=== PATIENT | male | born 1945 | race Caucasian/White ===

== ENCOUNTER → 2018-06-11 | Outpatient (CLI) | payer OTHER | LOC: FIMAGING 13:06 | PROVIDERS: ATTEND Internal Medicine | DX: J34.89 Other specified disorders of nose and nasal sinuses (principal); M50.321 Other cervical disc degeneration at C4-C5 level ==

== ENCOUNTER 2018-07-14 17:45 | Emergency (ER) | payer OTHER ==
--- NOTE | 2018-07-14 19:24 | EDPHY ---
H & P Stated Complaint: Dental/sinus inf, ABX x4mos, intermittent vertigo Time Seen by Provider: 07/14/18 19:05 HPI/ROS: CHIEF COMPLAINT: Sinus infection HISTORY OF PRESENT ILLNESS: The patient is a healthy 72-year-old man who comes to the emergency department his and daughter. They are concerned for persistent sinus infection that seems to be worsening. In March he developed a periapical abscess in his right upper molar. It was extracted. Prior to the extraction he had amoxicillin. After the extraction he was given Augmentin. He developed right sinus pressure however as well as discharge. No fevers. He finished a course of Augmentin but his symptoms persisted so his primary sent him to a urine nose and throat doctor. The ear nose and throat doctor placed him on a 40 day course of doxycycline. He has 4 days left but his symptoms have persisted. He also has having some mild intermittent dizziness with certain head movements. It resolves spontaneously and is very brief. His daughter is also concerned because he has had a low-grade fever of 99-100 at home. She is a nurse and is concerned about sepsis. They presented to an urgent care this afternoon who sent him here. No focal weakness or deficits. Severity: Moderate Modifying factors: None REVIEW OF SYSTEMS: Constitutional: denies: chills, fever, recent illness, recent injury EENTM: See HPI Respiratory: denies: cough, shortness of breath Cardiac: denies: chest pain, irregular heart rate, lightheadedness, palpitations Gastrointestinal/Abdominal: denies: abdominal pain, diarrhea, nausea, vomiting, blood streaked stools Genitourinary: denies: dysuria, frequency, hematuria, pain Musculoskeletal: denies: joint pain, muscle pain Skin: denies: lesions, rash, jaundice, bruising Neurological: denies: headache, numbness, paresthesia, tingling, dizziness, weakness Hematologic/Lymphatic: denies: blood clots, easy bleeding, easy bruising Immunologic/allergic: denies: HIV/AIDS, transplant 10 systems reviewed and negative except as noted EXAM: GENERAL: Well-appearing, well-nourished and in no acute distress. HEAD: Atraumatic, normocephalic. EYES: Pupils equal round and reactive to light, extraocular movements intact, sclera anicteric, conjunctiva are normal. ENT: Effusion right tympanic membrane, maxillary sinus tenderness on the right , oropharynx clear without exudates. Moist mucous membranes. NECK: Normal range of motion, supple without lymphadenopathy or JVD. LUNGS: Breath sounds clear to auscultation bilaterally and equal. No wheezes rales or rhonchi. HEART: Regular rate and rhythm without murmurs, rubs or gallops. ABDOMEN: Soft, nontender, normoactive bowel sounds. No guarding, no rebound. No masses appreciated. BACK: No CVA tenderness, no spinal tenderness, step-offs or deformities EXTREMITIES: Normal range of motion, no pitting or edema. No clubbing or cyanosis. NEUROLOGICAL: Cranial nerves II through XII grossly intact. Normal speech, normal gait. 5/5 strength, normal movement in all extremities, normal sensation , normal reflexes PSYCH: Normal mood, normal affect. SKIN: Warm, dry, normal turgor, no visible rashes or lesions. Source: Patient Exam Limitations: No limitations - Personal History Current Tetanus/Diphtheria Vaccine: Yes - Medical/Surgical History Hx Asthma: No Hx Chronic Respiratory Disease: No Hx Diabetes: No Hx Cardiac Disease: No Hx Renal Disease: No Hx Cirrhosis: No Hx Alcoholism: No Hx HIV/AIDS: No Hx Splenectomy or Spleen Trauma: No Other PMH: ORAL SURGERY, HTN, REFLUX - Family History Significant Family History: No pertinent family hx - Social History Smoking Status: Never smoked Alcohol Use: Sober Drug Use: None Constitutional: Initial Vital Signs Temperature (C) 37.3 C 07/14/18 18:01 Heart Rate 84 07/14/18 18:01 Respiratory Rate 16 07/14/18 18:01 Blood Pressure 163/100 H 07/14/18 18:01 O2 Sat (%) 97 07/14/18 18:01 O2 Delivery Mode Room Air Allergies/Adverse Reactions: No Known Allergies Allergy (Verified 07/14/18 18:01) Home Medications: Medication Instructions Recorded Albuterol 5 mg/ml INH [Proventil] 2 puffs IH Q4-6PRN #1 btl 05/24/13 Atenolol 05/24/13 Azithromycin 250 mg PO DAILY #1 packet 05/24/13 Benzonatate [Tessalon Pearles] 200 mg PO BID #14 cap 05/24/13 Flomax 0.4 MG (RX) 05/24/13 Nexium 05/24/13 Norvasc 05/24/13 levOFLOXACIN [levAQUIN] 750 mg PO DAILY #10 tab 07/14/18 predniSONE 40 mg PO DAILY #10 tablet 07/14/18 Medical Decision Making - Diagnostics Imaging: Discussed imaging studies w/ banquet server on call Radiologist ED Course/Re-evaluation: 8:00 p.m. discussed the case with Tato who is on-call for Dr. Membreno. He will call back pain 8:25 p.m. discussed the case with Tato who spoke with Dr. Mejia. He is recommending Levaquin and prednisone 40 mg and follow-up in their office tomorrow. Family is happy with this plan. Patient declines IV antibiotics here in the department. Differential Diagnosis: Partial list of the Differential diagnosis considered include but were not limited to; chronic sinusitis, acute sinusitis, abscess and although unlikely based on the history and physical exam, I also considered thrombosis, dissection , meningitis, sepsis. - Data Points Laboratory Results: Laboratory Results 07/14/18 19:35 07/14/18 19:35 Medications Given: Discontinued Medications Levofloxacin (Levaquin) 750 mg PO EDNOW ONE PRN Reason: Protocol Stop: 07/14/18 20:32 Last Admin: 07/14/18 20:40 Dose: 750 mg Prednisone (Prednisone) 40 mg PO EDNOW ONE Stop: 07/14/18 20:33 Last Admin: 07/14/18 20:40 Dose: 40 mg Departure - Departure Disposition: Home, Routine, Self-Care Clinical Impression: Chronic sinusitis Qualifiers: Sinusitis location: unspecified location Qualified Code(s): J32.9 - Chronic sinusitis, unspecified Condition: Fair Instructions: Sinusitis (ED) Referrals: Blade Yen MD [Primary Care Provider] - As per Instructions Prescriptions: levOFLOXACIN [levAQUIN] 750 mg PO DAILY #10 tab predniSONE 40 mg PO DAILY #10 tablet
[2018-07-14 19:55] LABS: PLATELET COUNT 259 10^3/uL (150-400)
[2018-07-14 20:04] LABS: INR 0.98 (0.83-1.16); PROTIME(PATIENT) 12.6 SEC (12.0-15.0)
[2018-07-14] MEDS ORDERED: predniSONE 20 MG TAB PO ONE (20:32)
[2018-07-14 20:48] VITALS: BP 161/90
== END 2018-07-14 20:48 | disposition home or self-care (01) ==
DX: J32.9 Chronic sinusitis, unspecified (principal)
CPT/HCPCS: 70486; 99284; J7512